=== PATIENT | female | born 1975 | race Caucasian/White ===

== ENCOUNTER → 2019-04-27 | Emergency (ER) | payer OTHER ==
[~2019-04-27] VITALS: Ht 154.9 cm; Wt 83.9 kg
[~2019-04-27] MED LIST: AMOX-CLAV 875-1 EACH PO; BENADRYL25 MG PO; CRESTOR5 MG PO; TENORMIN25 MG PO; ZOVIRAX5 GM TP
== END | disposition home or self-care (01) ==
LOC: ER 12:21
DX: K13.0 Diseases of lips (principal)